=== PATIENT | male | born 1965 | race Caucasian/White ===

== ENCOUNTER 2024-06-12 09:40 | Emergency (ER) | payer OTHER, SELFPAY ==
[2024-06-12 09:49] VITALS: BP 120/73
[2024-06-12 10:55] VITALS: BP 142/87; BMI 22.3
[2024-06-12] MEDS: OMNIPAQUE 50 ML PO (11:14)
[2024-06-12] MEDS: ZOFRAN 4 MG IV (11:14)
[2024-06-12] MEDS: NSS 1000 IV (11:14)
[2024-06-12] MEDS: BENTYL 20 MG IM (11:15)
[2024-06-12 11:18] LABS: % Basophils 0.4 % (0-2); % Eosinophils 0.5 % (0-6); % Immature Granulocytes 0.1 % (0-0.5); % Lymphocytes 17.9 % (20.5-51.1); % Monocytes 3.9 % (1.7-9.3); % Neutrophils 77.2 % (42.2-75.2); Absolute Lymphocytes 1.4 10^3/uL (1.2-3.4); Absolute Monocytes 0.3 10^3/uL (0.1-0.6); Hematocrit 43.1 % (39.0-52.0); Hemoglobin 14.8 g/dL (13.0-18.0); Mean Corp Hgb Conc. 34.3 g/dL (33.0-37.0); Mean Corpuscular Hgb 28.8 pg (27.0-31.0); Mean Platelet Volume 10.8 fL (7.4-10.4); Nucleated Red Blood Cells % 0 % (-); Platelet Count 168 10^3/uL (130-400); Red Blood Cell Count 5.13 10^6/uL (4.70-6.10); Red Cell Dist. Width 12.4 % (11.5-14.5); White Blood Cell Count 7.8 10^3/uL (4.8-10.8)
[2024-06-12 11:26] LABS: ALT (SGPT) 15 U/L (0-50); AST (SGOT) 20 U/L (17-59); Albumin 4.8 g/dl (3.5-5.0); Alkaline Phosphatase 85 U/L (38-126); Blood Urea Nitrogen 19 mg/dl (9-20); Carbon Dioxide 27 mmol/L (22-30); Chloride 105 mmol/L (98-107); Estimated Creatinine Clearance 83 ml/min; Glucose 122 mg/dl (70-99); Lipase 79 U/L (23-300); Potassium 4.2 mmol/L (3.5-5.1); Sodium 140 mmol/L (135-145); Total Bilirubin 0.9 mg/dl (0.2-1.3); Total Protein 7.2 g/dl (6.3-8.2); eGFR > 60.00
--- NOTE | 2024-06-12 11:28 | ED.GENMED ---
History of Present Illness
General
Chief Complaint: Abdominal Symptoms
Source: patient
Exam Limitations: none
Time Seen by Provider: 06/12/24 10:25
Nursing documentation reviewed up to this point in time: agreed with
History of Present Illness
History of Present Illness:
58-year-old male with past medical history of previous cardiomyopathy presenting to the emergency department with concerns of abdominal discomfort mainly to the lower abdomen ongoing for months associated nausea multiple episodes of vomiting per
week. He is also felt some lightheadedness intermittently as well. Also has had some lower neck pain. Denies any chest pain shortness of breath fevers. Saw his primary care doctor today and sent to the ER.
Past History
Past History
ED Past Medical History: None
ED Past Surgical History: Orthopedic
Social History
Tobacco: Non-smoker
Alcohol: None
Drug: None
Personal: Single
Living: alone
Employment: Employed
Review of Systems
Review of Systems
Allergies reviewed?: Yes
All Other Systems: ROS reviewed and negative except as documented in HPI and ROS
Phy Exam
Physical Exam
Physical Exam:
GENERAL: Alert , in no apparent distress
EYE: pupils equal and reactive
NECK: Supple, no significant adenopathy.
ENT: o/p clr, mmm.
CARDIAC: Regular rate and rhythm .
LUNGS: Clear breath sounds bilaterally, no acute respiratory distress, no wheezes/rales/rhonchi
ABDOMEN: Tender palpation to the lower abdomen mainly left lower quadrant.
NEUROLOGICAL: Alert and oriented, no focal neuro deficits
SKIN: Warm and dry, skin intact.
MUSCULOSKELETAL: No edema, well perfused.
PSYCH: Normal and appropriate interaction.
Course
Orders/Labs/Results
Orders:
Orders
06/12/24 10:39
CT Abd/pel W Iv And Oral Contr Urgent
Comment:
Reason For Exam: lower abd pain
0.9% Sodium Chloride 1000 ml [Nss] 1,000 ml IV BOLUS
Dicyclomine HCl [Bentyl] 20 mg IM NOW STA
Iohexol [Omnipaque] See Protocol PO NOW STA
Ondansetron Injectable [Zofran] 4 mg IV NOW STA
06/12/24 11:01
Complete Blood Count/With Diff Urgent
Comprehensive Metabolic Panel Urgent
Lipase Urgent
06/12/24 11:28
EKG [Electrocardiogram (*1)] Urgent
Reason for Study: Abdominal Pain
EKG- Treatment ONCE
06/12/24 11:42
Ketorolac [Toradol] 15 mg IV NOW STA
06/12/24 12:01
Urinalysis Reflex To Culture Urgent
Date Specimen was Collected: 06/12/24
Time Specimen was Collected: 11:58
Abnormal Lab Results
06/12/24
11:01
MPV 10.8 H fL
(7.4-10.4)
Neutrophils % 77.2 H %
(42.2-75.2)
Lymphocytes % 17.9 L %
(20.5-51.1)
Glucose 122 H mg/dl
(70-99)
06/12/24 11:01
06/12/24 11:01
Vital Signs
Initial and Last Documented VS:
Initial Vital Signs
Temp Pulse Resp BP Pulse Ox
99.0 F 64 18 120/73 95
06/12/24 09:49 06/12/24 09:49 06/12/24 09:49 06/12/24 09:49 06/12/24 09:49
Last Documented Vital Signs
Temp Pulse Resp BP Pulse Ox
99.0 F 56 14 131/67 96
06/12/24 09:49 06/12/24 13:00 06/12/24 13:00 06/12/24 13:00 06/12/24 13:00
MDM/Problems Addressed
MDM/Problems Addressed:
58-year-old male presenting to the emergency department today with concerns of lower abdominal pain persisting vomiting some lower neck discomfort headache over the past few months. Saw his primary care doctor today that sent him to the ER. Here
patient in general is well-appearing no distress vital signs are normal. Does have reproducible pain to lower abdomen. Otherwise normal heart and lung exam normal neurologically. Labs without emergent findings urinalysis normal CT scan without
emergent findings did discuss the incidental findings of potential liver cyst or hemangioma. Patient will follow-up closely as an outpatient. Return precautions given.
*Critical Care Note
Total Time (30-74mins, 75-104mins- exclusive of procedures): Not Applicable
ED Attending Note
-
Portions of this chart may have been created with voice recognition software.� Occasional wrong word or��sound alike� substitutions may have occurred due to the inherent limitations of voice recognition software.
Discharge Plan
Departure
Patient Disposition: Home (Routine Discharge)
Date of Disposition: 06/12/24
Time of Disposition: 15:11
Patient with high blood pressure during this ER visit?: No
Condition: Good
Covid-19: Not Applicable
Discharge Problem:
Vomiting, Abdominal pain
Instructions: Dehydration, Adult (DC), Nausea and Vomiting, Adult (DC)
Prescriptions:
New
ondansetron 4 mg tablet,disintegrating
4 mg PO Q8H PRN (Reason: nausea and vomiting) Qty: 7 0RF
No Action
ondansetron 4 MG tablet,disintegrating
4 mg PO TIDPRN PRN (Reason: nausea/vomiting) Qty: 8 0RF
Referrals:
Matty Chung MD [Family Provider] -
Kellen Jenkins MD [Active] - Follow up in 1 week
Activity Restrictions/Additional Instructions:
You came to the emergency department today with multiple concerns. Please feel closely with GI. Otherwise your workup here was reassuring. Return to the emergency department for any worsening, new or concerning symptoms.
Interventions
Interventions:
*Risk Screen - Suicide Last Done: 06/12/24 09:49
*General Assessment Last Done: 06/12/24 09:49
*Neglect/Abuse Screening Last Done: 06/12/24 09:49
ED- Fall Risk Assessment Last Done: 06/12/24 10:55
*ED COVID-19 Vaccine History Last Done: 06/12/24 09:49
XL-Fomoii-Uuedmqiylq Assessment Last Done: 06/12/24 10:55
Discharge Date and Time
Print Language: ITALIAN
[2024-06-12] MEDS: TORADOL 15 MG IV (12:01)
[2024-06-12 12:07] VITALS: BP 143/71
[2024-06-12 12:48] LABS: Urine Albumin Negative (Neg - Trace); Urine Bilirubin Negative (Negative); Urine Character Clear (Clear); Urine Color Yellow; Urine Glucose Negative (Negative); Urine Ketone Negative (Negative); Urine Leukocyte Negative (Negative); Urine Nitrite Negative (Negative); Urine Occult Blood Negative (Negative); Urine Urobilinogen Negative (Neg - 1+)
[2024-06-12 13:00] VITALS: BP 131/67
--- NOTE | 2024-06-12 13:55 | EDRN ---
Pt is BR at this time.
[2024-06-12 15:00] VITALS: BP 108/54
--- NOTE | 2024-06-12 15:08 | EDRN ---
Liz CALVERT in room w/ pt.
== END 2024-06-12 15:33 | disposition home or self-care (01) ==
LOC: EMR 09:40
PROVIDERS: Physician Assistant; EMERGENCY PHYSICIAN Emergency Medicine; FAMILY PHYSICIAN Family Medicine
DX: R10.30 Lower abdominal pain, unspecified (principal); R11.2 Nausea with vomiting, unspecified; R42 Dizziness and giddiness; M54.2 Cervicalgia; R51.9 Headache, unspecified; I42.9 Cardiomyopathy, unspecified; Z88.6 Allergy status to analgesic agent; Z88.5 Allergy status to narcotic agent; Z88.8 Allergy status to other drugs, medicaments and biological substances
CPT/HCPCS: 99284; 96375; 96361; 96372; 96374; 74177; 80053; 81003; 83690; 85025; 93005; Q9967

== ENCOUNTER → 2025-04-23 14:25 | Outpatient (REF) | payer OTHER, SELFPAY | LOC: MRI 3T 14:25 | PROVIDERS: ATTENDING PHYSICIAN Surgery; FAMILY PHYSICIAN Family Medicine | DX: R97.20 Elevated prostate specific antigen [PSA] (principal) | CPT/HCPCS: 72197; A9575 ==

== ENCOUNTER 2025-06-15 09:04 | Outpatient (RCR) | payer OTHER, SELFPAY | END 2025-06-15 23:59 | disposition home or self-care (01) | LOC: RPT 09:04 | PROVIDERS: ATTENDING PHYSICIAN Surgery; FAMILY PHYSICIAN Family Medicine | DX: M62.89 Other specified disorders of muscle (principal); C61 Malignant neoplasm of prostate; Z73.6 Limitation of activities due to disability; R32 Unspecified urinary incontinence | CPT/HCPCS: 97162; 97530 ==

== ENCOUNTER 2025-06-26 11:15 | Inpatient (IN) | payer OTHER, SELFPAY ==
[2025-06-12 08:44] LABS: Hematocrit 41.1 % (39.0-52.0); Hemoglobin 13.5 g/dL (13.0-18.0); Mean Corp Hgb Conc. 32.8 g/dL (33.0-37.0); Mean Corpuscular Volume 85.3 fL (80.0-94.0); Platelet Count 165 10^3/uL (130-400); Red Cell Dist. Width 12.6 % (11.5-14.5)
[2025-06-12 08:52] LABS: INR 0.96; PT 13.1 Sec (11.4-14.6)
[2025-06-12 08:53] LABS: APTT 30.1 Sec (23.4-35.0)
[2025-06-12 09:56] LABS: Blood Urea Nitrogen 20 mg/dl (9-20); Calcium 9.4 mg/dl (8.4-10.2); Carbon Dioxide 26 mmol/L (22-30); Chloride 107 mmol/L (98-107); Glucose 104 mg/dl (70-99); Potassium 4.6 mmol/L (3.5-5.1); Sodium 142 mmol/L (135-145); eGFR > 60.00
[2025-06-12 13:41] VITALS: BMI 21.1
[2025-06-26] VITALS (18 sets, daily range): BP systolic 93–120; BP diastolic 44–74; BMI 21.1
[2025-06-26] MEDS: NORMOSOL-R/PLASMALYTE-A 1000 IV (06:30)
[2025-06-26] MEDS: NEBCIN 480 MG/100 ML ENEMA 1 BOTTLE RECTAL (07:30)
--- NOTE | 2025-06-26 09:58 | W.IMMPOSTOP ---
Surgical Immed Post Op Note
-
Primary Surgeon: Dilip
Pre-op Diagnosis: [place] 6 prostate adenocarcinoma
Post-op Diagnosis: Same
Procedure Performed: radical perineal prostatectomy, bladder neck tubularization/reconstruction
Anesthesia Type: GETA
Specimen / Cultures: prostate + SVs, membranous urethra + bladder neck margins (frozen - negative)
Estimated Blood Loss: 100 cc
Drains: 18Fr Haley catheter
Complications: None
Operative Findings: No gross evidence of capsular penetration, watertight vesicourethral anastomosis, bilateral nerve-sparing procedure, no rectal injury at conclusion.
[2025-06-26] MEDS: NSS 1000 IV (15:06)
[2025-06-26] MEDS: COLACE PO (18:15)
--- NOTE | 2025-06-26 19:48 | PTCARENOTE ---
Pt arrived 1420 from PACU. VSS. AAOX3. IVF infusing. hernandez draining. Oriented to room and call vaughn. bed locked and in lowest position. head to toe assessment complete.
[2025-06-26] MEDS: COLACE 100 MG PO (19:52)
[2025-06-26] MEDS: SEROQUEL 25 MG PO (21:23)
--- NOTE | 2025-06-27 02:38 | DOWNTIME ---
There was a [employer] Client Child Welfare Counselor Downtime on 06/27/2025 from 0100 to 06/27/2025 at 0235. Downtime documentation of patient's care, including medication administrations, has been reconciled in the electronic record per guidelines. Refer to the
patient's paper chart under the miscellaneous tab to see printed paper medication records and downtime forms.
[2025-06-27 03:03] VITALS: BP 94/49
[2025-06-27] MEDS: NSS 1000 IV (04:01)
[2025-06-27 06:27] LABS: Hematocrit 31.0 % (39.0-52.0); Hemoglobin 10.2 g/dL (13.0-18.0); Mean Corp Hgb Conc. 32.9 g/dL (33.0-37.0); Mean Corpuscular Volume 85.2 fL (80.0-94.0); Nucleated Red Blood Cells % 0 % (-); Platelet Count 123 10^3/uL (130-400); Red Cell Dist. Width 12.4 % (11.5-14.5)
[2025-06-27 06:49] LABS: Blood Urea Nitrogen 15 mg/dl (9-20); Calcium 8.5 mg/dl (8.4-10.2); Carbon Dioxide 27 mmol/L (22-30); Chloride 106 mmol/L (98-107); Estimated Creatinine Clearance 86 ml/min; Glucose 109 mg/dl (70-99); Potassium 4.1 mmol/L (3.5-5.1); Sodium 138 mmol/L (135-145); eGFR > 60.00
[2025-06-27 07:30] VITALS: BP 120/76
--- NOTE | 2025-06-27 07:50 | W.PN.URO.CBU ---
Today's Communication / Plan
-
Case management consult for VN at discharge
OOB and ambulating today
Maintain Haley catheter x10 days - VN removal and PVR as outpatient
Plan for discharge tomorrow
Assessment / Plan
-
Prostate cancer
06/26: s/p RPP
Meeting all post-op milestones.
UOP clear.
CBC/CMP WNL.
Diagnosis
-
Date of Service: June 27, 2025
-
Patient Diagnosis:
[place] 6 adenocarcinoma of prostate
Post Op Day:
06/26: s/p RPP
Subjective
-
Denies pain in bed - only when sitting in chair.
Urine clear in tubing.
Tolerating diet.
No flatus yet.
Objective
-
Vital Signs
Temp Pulse Resp BP Pulse Ox
98 F 67 16 120/76 99
06/27/25 07:30 06/27/25 07:30 06/27/25 07:30 06/27/25 07:30 06/27/25 07:30
Intake and Output
06/26/25 06/27/25 06/28/25
06:59 06:59 06:59
Intake Total 2295 / 2295
Output Total 1425 / 1425 650 / 650
Balance 870 / 870 -650 / -650
Intake:
Oral fluids 1120 / 1120
IV fluids (Total) 1175 / 1175
normosol 275 / 275
Output:
Urine, Haley 1250 / 1250 650 / 650
Urine, Voided 175 / 175
Laboratory Results
06/27/25 05:45
06/27/25 05:45
Physical Exam
-
General - well developed, well nourished, no acute distress
Abdomen - soft, non-tender, non-distended
- Haley catheter w/ clear UOP - no hematuria/clots, perineal dressing c/d/i w/ minimal saturation
Extremities - no clubbing, no cyanosis, no edema
Care Review
Data Reviewed
Discussed with: Nursing
MRI: Report Pers Reviewed and Image Pers Reviewed
Total Time Spent with Patient (in minutes): 25
[2025-06-27] MEDS: MOTRIN 600 MG PO ×2 (08:17→14:33)
[2025-06-27] MEDS: COLACE 100 MG PO ×2 (08:17→20:01)
[2025-06-27 11:36] VITALS: BP 123/63
[2025-06-27] MEDS: TYLENOL 650 MG PO (11:47)
[2025-06-27] MEDS: NSS IV (14:58)
[2025-06-27 15:50] VITALS: BP 108/50
--- NOTE | 2025-06-27 15:59 | CM ---
Addendum entered by Fariha Crow 06/27/25 16:09:
Home with visiting nurses, patient has selected [facility]
PCP: Dr. Chung
Pharmacy: [facility] in [place]
Original Note:
classified advertising manager reviewed patient's chart and met with patient and patient lives alone in a one story home, patient is independent with adl's and ambulation, no dme, home when stable, no needs.
Plan; Home when stable, no needs.
--- NOTE | 2025-06-27 16:15 | VNURNOTE ---
Home Health Liaison met with patient at bedside to discuss [facility] nurse/therapy, visits, schedule and homebound status. Patient is agreeable and understands that visits at home will be 2-3 x per week to assess and teach medical and hernandez
management. This author obtained clarification from Urologist- VN to see patient day after DC 06/29. Patient is aware that [facility] will contact them for start of care day after discharge from . Provided contact number for [facility].
PM [facility] referral completed in [facility].
[2025-06-27] MEDS: SEROQUEL 25 MG PO (22:00)
[2025-06-27 22:47] VITALS: BP 120/64
[2025-06-28 06:01] LABS: Hematocrit 31.3 % (39.0-52.0); Hemoglobin 10.2 g/dL (13.0-18.0); Mean Corp Hgb Conc. 32.6 g/dL (33.0-37.0); Mean Corpuscular Volume 86.5 fL (80.0-94.0); Nucleated Red Blood Cells % 0 % (-); Platelet Count 116 10^3/uL (130-400); Red Cell Dist. Width 12.6 % (11.5-14.5)
[2025-06-28] MEDS: TYLENOL 650 MG PO (06:10)
[2025-06-28 06:12] LABS: Blood Urea Nitrogen 13 mg/dl (9-20); Calcium 8.9 mg/dl (8.4-10.2); Carbon Dioxide 30 mmol/L (22-30); Chloride 108 mmol/L (98-107); Estimated Creatinine Clearance 86 ml/min; Glucose 100 mg/dl (70-99); Potassium 4.3 mmol/L (3.5-5.1); Sodium 141 mmol/L (135-145); eGFR > 60.00
[2025-06-28 07:15] VITALS: BP 112/59
[2025-06-28] MEDS: COLACE 100 MG PO (08:32)
[2025-06-28] MEDS: MOTRIN 600 MG PO (08:41)
--- NOTE | 2025-06-28 09:30 | W.PN.URO.CBU ---
Today's Communication / Plan
-
VN confirmed
Haley teaching by RN prior to discharge appreciated
Discharge home later today
VN to remove catheter in AM 07/05 + PVR in office PM 07/05
Assessment / Plan
-
Prostate cancer
06/26: s/p RPP
Perineal incision c/d/i w/ scant drainage.
Pain well-controlled.
UOP clear.
CBC/CMP WNL.
Diagnosis
-
Date of Service: June 28, 2025
-
Patient Diagnosis:
[place] 6 adenocarcinoma of prostate
Post Op Day:
06/26: s/p RPP
Subjective
-
Tolerating diet.
Requiring only NSAIDs for post-op pain.
Urine clear in tubing.
Passing flatus w/o issue.
Objective
-
Vital Signs
Temp Pulse Resp BP Pulse Ox
98.7 F 62 16 112/59 93
06/28/25 07:15 06/28/25 07:15 06/28/25 07:15 06/28/25 07:15 06/28/25 07:15
Intake and Output
06/27/25 06/28/25 06/29/25
06:59 06:59 06:59
Intake Total 2295 / 2295 880 / 880
Output Total 1425 / 1425 2900 / 2900
Balance 870 / 870 -2019 / -2019
Intake:
Oral fluids 1120 / 1120 880 / 880
IV fluids (Total) 1175 / 1175
normosol 275 / 275
Output:
Urine, Haley 1250 / 1250 2900 / 2900
Urine, Voided 175 / 175
Laboratory Results
06/28/25 05:20
06/28/25 05:20
Physical Exam
-
General - well developed, well nourished, no acute distress
Abdomen - soft, non-tender, non-distended
- Haley catheter w/ clear outflow, perineal incision c/d/i (Deandra removed)
Skin - warm & dry with no rash
Extremities - no clubbing, no cyanosis, no edema
Care Review
Data Reviewed
Discussed with: Nursing
--- NOTE | 2025-06-28 10:24 | PN.CDI ---
CDI
- -
CDI:
Physician Documentation Request
Admit Date: 06/26/25 11:15
Dear Doctor Dilip,
Please review the following and provide your response in the progress notes.
Clinical Indicators:
06/26
#PROCEDURE:
#...1. Radical perineal prostatectomy.
#...2. Bladder neck tubularization and reconstruction.
#...3. Bilateral seminal vesiculotomy.
#ESTIMATED BLOOD LOSS: 100 mL.
Laboratory Tests
06/12/25 06/27/25 06/28/25
07:10 05:45 05:20
Hgb 13.5 10.2 L 10.2 L
Based on the above, please clarify, the most likely condition/diagnosis evaluated, monitored and/or treated?
Acute blood loss anemia
Abnormal lab value, clinically insignificant
Other(please specify)
Use of terms such as suspected, likely, concern for, or probable (associated with a specific diagnosis that is being evaluated, monitored, or treated as if it exists) are acceptable and can be coded in the inpatient setting, when documented at the
time of discharge.
Thank you,
Joi Goncalves RN BSN CCDS
CDI Specialist
Please contact via tiger text
Please use your independent medical judgment in providing your response.
--- NOTE | 2025-06-28 10:42 | CM ---
Home with [facility].
Plan; Home with [facility]
--- NOTE | 2025-06-28 10:43 | W.DS.TRANS ---
DC Summary - Folder Seamer
-
Discharge Instructions:
Sleep Apnea Risk Low
Discharge Diagnosis/Procedures prostate cancer s/p radical perineal
prostatectomy
Diet Regular
Activity No strenuous activity
Additional Activity No strenuous activity, heavy lifting >20 lbs,
exercise (cardio/weights, etc) for 4 weeks after
surgery
Driving Restrictions As prior to admission
Bathing Restrictions OK to Shower
Blood Work not appicable
Other Services VN
Wound Care not applicable
Instructions:
Stand-Alone Forms:
Changes to Home Medications: No
Discharge Medications:
DC Medications w/original date entered in [facility]
quetiapine 25 mg tablet 25 mg PO HS 06/19/25
docusate sodium 100 mg capsule (Colace) 100 mg PO BID PRN constipation 5 days #10 caps 06/28/25
sulfamethoxazole 800 mg-trimethoprim 160 mg tablet (Bactrim DS) 1 tab PO DAILY #5 tabs 06/28/25
Home Medication Changes
Pending Results: Yes
Additional Pending Results:
surgical pathology
Total time spent discharging patient (in min): 55
--- NOTE | 2025-06-28 15:00 | PTCARENOTE ---
Leg bag teaching done with patient and spouse. Patient and spouse were able to teach back with hand hygiene, cleaning port with alcohol before attaching drainage bag to hernandez.
[2025-06-28 15:44] VITALS: BP 114/65
== END 2025-06-28 15:49 | disposition home or self-care (01) | DRG 707 ==
LOC: 2 SOUTH 11:15
PROVIDERS: ADMITTING PHYSICIAN Surgery; FAMILY PHYSICIAN Family Medicine
PROC: 0VT30ZZ Resection of Bilateral Seminal Vesicles, Open Approach (ICD-10-PCS; 2025-06-26)
PROC: 0VTQ0ZZ Resection of Bilateral Vas Deferens, Open Approach (ICD-10-PCS; 2025-06-26)
PROC: 0TQC0ZZ Repair Bladder Neck, Open Approach (ICD-10-PCS; 2025-06-26)
PROC: 0VT00ZZ Resection of Prostate, Open Approach (ICD-10-PCS; 2025-06-26)
DX: C61 Malignant neoplasm of prostate (principal); I42.9 Cardiomyopathy, unspecified; I48.0 Paroxysmal atrial fibrillation
CPT/HCPCS: 36415; 80048; 85025; 85027; 85610; 85730; 86850; 86900; 86901; 88305; 88307; 88309; 88331; 93005; A4648

== ENCOUNTER 2025-08-01 11:55 | Outpatient (RCR) | payer OTHER, SELFPAY | END 2025-08-01 23:59 | disposition home or self-care (01) | LOC: RPT 11:55 | PROVIDERS: ATTENDING PHYSICIAN Surgery; FAMILY PHYSICIAN Family Medicine | DX: M62.89 Other specified disorders of muscle (principal); C61 Malignant neoplasm of prostate; Z73.6 Limitation of activities due to disability; R32 Unspecified urinary incontinence; Z98.890 Other specified postprocedural states; Z90.79 Acquired absence of other genital organ(s) | CPT/HCPCS: 97110; 97140; 97164; 97530 ==

== ENCOUNTER 2025-09-03 08:15 | Outpatient (RCR) | payer OTHER, SELFPAY | END 2025-09-03 23:59 | disposition home or self-care (01) | LOC: RPT 08:15 | PROVIDERS: ATTENDING PHYSICIAN Surgery; FAMILY PHYSICIAN Family Medicine | DX: M62.89 Other specified disorders of muscle (principal); C61 Malignant neoplasm of prostate; Z73.6 Limitation of activities due to disability; R32 Unspecified urinary incontinence; Z98.890 Other specified postprocedural states; Z90.79 Acquired absence of other genital organ(s) | CPT/HCPCS: 97110; 97112; 97140; 97530 ==

== ENCOUNTER 2025-09-26 12:03 | Outpatient (RCR) | payer OTHER, SELFPAY | END 2025-09-26 23:59 | disposition home or self-care (01) | LOC: RPT 12:03 | PROVIDERS: ATTENDING PHYSICIAN Surgery; FAMILY PHYSICIAN Family Medicine | DX: M62.89 Other specified disorders of muscle (principal); C61 Malignant neoplasm of prostate; Z73.6 Limitation of activities due to disability; R32 Unspecified urinary incontinence; Z98.890 Other specified postprocedural states; Z90.79 Acquired absence of other genital organ(s) | CPT/HCPCS: 97110; 97112; 97140; 97530 ==

== ENCOUNTER 2025-11-07 12:42 | Outpatient (RCR) | payer OTHER, SELFPAY | END 2025-11-07 23:59 | disposition home or self-care (01) | LOC: RPT 12:42 | PROVIDERS: ATTENDING PHYSICIAN Surgery; FAMILY PHYSICIAN Family Medicine | DX: M62.89 Other specified disorders of muscle (principal); C61 Malignant neoplasm of prostate; Z73.6 Limitation of activities due to disability; R32 Unspecified urinary incontinence; Z98.890 Other specified postprocedural states; Z90.79 Acquired absence of other genital organ(s) | CPT/HCPCS: 97110; 97112; 97140; 97530 ==